=== PATIENT | female | born 1995 | race Caucasian/White ===

== ENCOUNTER 2017-05-19 20:29 | Emergency (ER) | payer OTHER ==
[~2017-05-19] VITALS: Ht 160 cm; Wt 54.4 kg
--- OUTSIDE RECORDS SUMMARY | 2017-05-19 20:36 | XMS REPORT ---
Author Author Carlos Alberto Strickland Organization [employer] Address [address] [place] [address] Care Team Providers Care Systems Librarian Name Role Phone Carlos Alberto Strickland Unavailable PROBLEMS Type Condition ICD9-CM Code [id number] Code Onset Dates Condition Status SNOMED Code Problem Other rosacea L71.8 Active 798043704 Problem Non morbid obesity due to excess calories E66.09 Active 014890701 Problem BMI 30.0-30.9,adult Z68.30 Active 450650472 ALLERGIES Unknown Allergies SOCIAL HISTORY No smoking Hx information available PLAN OF CARE VITAL SIGNS MEDICATIONS Medication Instructions Dosage Frequency Start Date End Date Duration Status Sprintec 28 0.25-35 MG-MCG Orally Once a day 1 tablet 24h 90 days Active RESULTS No Results PROCEDURES No Known procedures IMMUNIZATIONS No Known Immunizations
--- OUTSIDE RECORDS SUMMARY | 2017-05-19 20:36 | XMS REPORT ---
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
--- OUTSIDE RECORDS SUMMARY | 2017-05-19 20:36 | XMS REPORT ---
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 Unknown Non Drug Allergy Jul, Unknown SOCIAL HISTORY No smoking Hx information available PLAN OF CARE Activity Details Pending Test Urinalysis, Complete Pending Test *CBC With Platelet and Differential Pending Test *Comprehensive Metabolic Panel (CMP) Pending Test eGFR Pending Test *Lipid Panel Pending Test Non-HDL Cholesterol Pending Test *TSH Pending Test *LAUREN Screen prn,Reason: VITAL SIGNS Temperature 98.3 degrees Fahrenheit 2016-08-20 Height 64.25 in 2016-08-20 Weight 178.4 lbs 2016-08-20 Oximetry 99% on room air % 2016-08-20 BMI 30.38 kg/m2 2016-08-20 Blood pressure systolic 110 mm Hg 2016-08-20 Blood pressure diastolic 76 mm Hg 2016-08-20 MEDICATIONS Medication Instructions Dosage Frequency Start Date End Date Duration Status Sprintec 28 0.25-35 MG-MCG Orally Once a day 1 tablet 24h 90 days Active Maxalt 10 mg Orally Once a day 1 tablet as needed one time 24h Dec, May, 15 days Active Fioricet 50-300-40 MG Orally every 4 hrs 1 capsule as needed 4h Dec, May, 15 days Active Excedrin Migraine 250-250-65 MG Orally every 6 hrs 2 tablets as needed 6h Active Doxycycline Hyclate 100 MG Orally every 12 hrs 1 capsule 12h Jul, 10 days Active Metrogel 1 % Externally Once a day 1 application to affected area 24h Jul, 10 days Active Probiotic - as directed Active Multi For Her - as directed Active RESULTS No Results PROCEDURES Procedure Date Ordered Related Diagnosis Body Site VENIPUNCT, ROUTINE* August 20, 2016 COMPLETE CBC W/AUTO DIFF WBC August 20, 2016 Preventive Care Est Pt. Age 18-39 August 20, 2016 LIPID PANEL August 20, 2016 COMPREHEN METABOLIC PANEL August 20, 2016 ANTINUCLEAR ANTIBODIES August 20, 2016 ASSAY THYROID STIM HORMONE August 20, 2016 IMMUNIZATIONS No Known Immunizations
--- OUTSIDE RECORDS SUMMARY | 2017-05-19 20:36 | XMS REPORT ---
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
--- OUTSIDE RECORDS SUMMARY | 2017-05-19 20:36 | XMS REPORT ---
Author Author Carlos Alberto Strickland Organization [employer] Address [address] [place] [address] Care Team Providers Care Logistics Research Engineer Name Role Phone Carlos Alberto Strickland Unavailable PROBLEMS Type Condition ICD9-CM Code [id number] Code Onset Dates Condition Status SNOMED Code Problem Other rosacea L71.8 Active 245699694 Problem Non morbid obesity due to excess calories E66.09 Active 274374060 Problem BMI 30.0-30.9,adult Z68.30 Active 525822717 ALLERGIES Unknown Allergies SOCIAL HISTORY No smoking Hx information available PLAN OF CARE VITAL SIGNS MEDICATIONS Medication Instructions Dosage Frequency Start Date End Date Duration Status Sprintec 28 0.25-35 MG-MCG Orally Once a day 1 tablet 24h 90 days Active RESULTS No Results PROCEDURES No Known procedures IMMUNIZATIONS No Known Immunizations
--- OUTSIDE RECORDS SUMMARY | 2017-05-19 20:36 | XMS REPORT ---
Author Author Carlos Alberto Strickland Organization [employer] Address [address] [place] [address] Care Team Providers Care Sheet Manufacturing Supervisor Name Role Phone Carlos Alberto Strickland Unavailable PROBLEMS Type Condition ICD9-CM Code [id number] Code Onset Dates Condition Status SNOMED Code Problem Other rosacea L71.8 Active 166883991 Problem Non morbid obesity due to excess calories E66.09 Active 533657704 Problem BMI 30.0-30.9,adult Z68.30 Active 362285257 ALLERGIES Substance Reaction Event Type Date Status N.K.D.A. Unknown Non Drug Allergy Nov, Unknown SOCIAL HISTORY Qualifiers Date Never Smoker Unknown PLAN OF CARE Activity Details Follow Up 1 Year Reason:null Pending Test Urinalysis, Complete Pending Test Test, Urine Pending Test Genital Culture, Routine [facility] Pending Test *PAP (LBP) w/ Reflex High Risk HPV if results VITAL SIGNS Temperature 97.2 degrees Fahrenheit 2016-12-27 Height 64.25 in 2016-12-27 Weight 175.0 lbs 2016-12-27 Oximetry 96%ra % 2016-12-27 BMI 29.80 kg/m2 2016-12-27 Blood pressure systolic 110 mm Hg 2016-12-27 Blood pressure diastolic 74 mm Hg 2016-12-27 MEDICATIONS Medication Instructions Dosage Frequency Start Date End Date Duration Status Doxycycline Hyclate 100 MG Orally Once a day 1 capsule 24h Nov, 30 days Active Sprintec 28 0.25-35 MG-MCG Orally Once a day 1 tablet 24h 90 days Active Multi For Her - as directed Active Excedrin Migraine 250-250-65 MG Orally every 6 hrs 2 tablets as needed 6h Active Metrogel 1 % Externally Once a day 1 application to affected area 24h Jul, 10 days Active Probiotic - as directed Active RESULTS No Results PROCEDURES Procedure Date Ordered Related Diagnosis Body Site URINALYSIS December 27, 2016 URINE TEST December 27, 2016 Preventive Care Est Pt. Age 18-39 December 27, 2016 CULTURE, BACTERIA, OTHER than urine December 27, 2016 IMMUNIZATIONS No Known Immunizations
--- NOTE | 2017-05-19 20:52 | ED Cough/URI ---
General Chief Complaint: Cough/Cold/Flu Symptoms Stated Complaint: COUGH;CHILLS Nursing Triage Note: Pt c/o chills, body aches, sore throat, nasal congestion, productive cough, and bilateral flank pain x 3 days. Source: patient Exam Limitations: no limitations History of Present Illness Time seen by provider: 20:51 Initial Comments To ER with today being the third day of symptoms. These include sore throat, nonproductive cough, shortness of breath, chills. Timing/Duration: just prior to arrival Severity/Quality: dry cough Associated Symptoms: cough, fever/chills, shortness of breath Allergies and Home Medications Allergies Coded Allergies: No Known Drug Allergies (Unverified , 05/19/17) Constitutional: see HPI EENTM: see HPI Respiratory: no symptoms reported Cardiovascular: no symptoms reported Genitourinary: no symptoms reported Musculoskeletal: no symptoms reported Skin: no symptoms reported Psychiatric/Neurological: No Symptoms Reported Past Vyzeaat-Fyxjiq-Dzpanz Hx Patient Social History Alcohol Use: Denies Use Recreational Drug Use: No Smoking Status: Never a Smoker 2nd Hand Smoke Exposure: No Recent Foreign Travel: No Contact w/Someone Who Travel: No Recent Infectious Disease Expo: No Recent Hopitalizations: No Physical Abuse: No Sexual Abuse: No Mistreated: No Fear: No Immunizations Up To Date Tetanus Booster (TDap): Unknown Seasonal Allergies Seasonal Allergies: No Surgeries History of Surgeries: No Respiratory History of Respiratory Disorde: No Cardiovascular History of Cardiac Disorders: No Neurological History of Neurological Disord: No Genitourinary History of Genitourinary Disor: No Gastrointestinal History of Gastrointestinal Di: No Musculoskeletal History of Musculoskeletal Dis: No Endocrine History of Endocrine Disorders: No HEENT History of HEENT Disorders: No Cancer History of Cancer: No Psychosocial History of Psychiatric Problem: No Suicide Risk Score: 1 Integumentary History of Skin or Integumenta: No Blood Transfusions History of Blood Disorders: No Adverse Reaction to a Blood Tr: No Physical Exam Vital Signs Vital Sign - Last 12Hours 05/19/17 20:35 Temp 98.1 Pulse 123 Resp 18 B/P (MAP) 138/98 (111) Pulse Ox 100 O2 Delivery Room Air Capillary Refill : Less Than 3 Seconds General Appearance: WD/WN, no apparent distress Eyes: Bilateral Eye Normal Inspection, Bilateral Eye PERRL, Bilateral Eye EOMI HEENT: PERRL/EOMI, normal ENT inspection, TMs normal Neck: non-tender, full range of motion Respiratory: normal breath sounds, no respiratory distress, no accessory muscle use Cardiovascular: tachycardia (she is afebrile at 98-99 but fairly tachycardic at about 130) Gastrointestinal: normal bowel sounds, non tender, soft Neurologic/Psychiatric: alert, normal mood/affect, oriented x 3 Skin: normal color, warm/dry Progress/Results/Core Measures Suspected Sepsis Recent Fever Within 48 Hours: Yes Infection Criteria Present: None New/Unexplained Altered Menta: No Sepsis Screen: No Definite Risk Sepsis Diagnosis: SIRS Temperature:98.1 Pulse: 123 Respiratory Rate: 18 Blood Pressure 138 /98 Mean: 111 Results/Orders Micro Results Microbiology 05/19/17 Influenza Types A,B Antigen (RANDAL) - Final, Complete My Orders Orders - PHILLIP MISHRA APRN Influenza A And B Antigens (05/19/17 20:33) Cbc With Automated Diff (05/19/17 20:49) Comprehensive Metabolic Panel (05/19/17 20:49) Hcg,Qualitative Serum (05/19/17 20:49) Saline Lock/Iv-Start (05/19/17 20:49) Chest Pa/Lat (2 View) (05/19/17 20:49) Ns Iv 1000 Ml (Sodium Chloride 0.9%) (05/19/17 21:00) Vital Signs/I&O Vital Sign - Last 12Hours 05/19/17 20:35 Temp 98.1 Pulse 123 Resp 18 B/P (MAP) 138/98 (111) Pulse Ox 100 O2 Delivery Room Air Capillary Refill : Less Than 3 Seconds Blood Pressure Mean: 111 Departure Impression Impression: Primary Impression: Influenza A Disposition: 01 HOME, SELF-CARE Condition: Stable Departure-Patient Inst. Decision time for Depature: 21:06 Referrals: [facility] (PCP) Primary Care Physician Patient Instructions: Flu, Adult (DC) Add. Discharge Instructions: 1. Tylenol and Motrin for fevers and chills which will persist for the next few days 2. Bnir-rwl-rncqpsh cough and cold remedies such as DayQuil and NyQuil are fine. All discharge instructions reviewed with patient and/or family. Voiced understanding. PHILLIP MISHRA APRN May 19, 2017 20:52
[2017-05-19] MEDS ORDERED: NS IV 1000 ML 1,000 ML IV SCH (21:00)
[2017-05-19 21:10] LABS: BASOPHILS % (AUTO) 0 % (0-10); EOSINOPHILS % (AUTO) 0 % (0-10); LYMPHOCYTES # (AUTO) 1.4 X 10^3 (1.0-4.0); LYMPHOCYTES % (AUTO) 27 % (12-44); MEAN CORPUSCULAR HEMOGLOBIN 28 PG (25-34); MEAN CORPUSCULAR HGB CONC 35 G/DL (32-36); MEAN CORPUSCULAR VOLUME 81 FL (80-99); MEAN PLATELET VOLUME 10.1 FL (7.4-10.4); MONOCYTES # (AUTO) 0.8 X 10^3 (0.0-1.0); MONOCYTES % (AUTO) 16 % (0-12); NEUTROPHILS % (AUTO) 56 % (42-75); PLATELET COUNT 282 10^3/uL (130-400); RED BLOOD COUNT 5.48 10^6/uL (4.35-5.85); RED CELL DISTRIBUTION WIDTH 12.6 % (10.0-14.5); WHITE BLOOD COUNT 5.3 10^3/uL (4.3-11.0)
--- NOTE | 2017-05-19 21:21 | Diagnostic Imaging Report ---
INDICATION: Chills, body pain, sore throat, congestion with cough FINDINGS: There is some borderline prominence of the perihilar airways, bronchitis or reactive airway disease could not be excluded. No aleena pneumonia, however. No effusion or pneumothorax. IMPRESSION: No focal infiltrate, failure, effusion or pneumothorax. Mild prominence of the perihilar interstitial markings. Dictated by: Dictated on workstation # [id number]
[2017-05-19 21:52] LABS: ALANINE AMINOTRANSFERASE 27 U/L (0-55); ALBUMIN 4.3 GM/DL (3.2-4.5); ANION GAP 11 MMOL/L (5-14); ASPARTATE AMINO TRANSFERASE 32 U/L (5-34); BILIRUBIN,TOTAL 0.3 MG/DL (0.1-1.0); BLOOD UREA NITROGEN 7 MG/DL (7-18); BUN/CREATININE RATIO 8; CALCIUM 9.3 MG/DL (8.5-10.1); CARBON DIOXIDE 21 MMOL/L (21-32); CHLORIDE 104 MMOL/L (98-107); CREATININE SERUM 0.92 MG/DL (0.60-1.30); GFR ESTIMATED > 60; GLUCOSE 129 MG/DL (70-105); POTASSIUM 3.5 MMOL/L (3.6-5.0); SODIUM 136 MMOL/L (135-145); TOTAL PROTEIN 8.1 GM/DL (6.4-8.2)
[2017-05-19 21:56] VITALS: BP 128/66
== END 2017-05-19 21:54 | disposition home or self-care (01) ==
LOC: ER 20:32
DX: J11.1 Influenza due to unidentified influenza virus with other respiratory manifestations (principal)
CPT/HCPCS: 36415; 71020; 80053; 84703; 85025; 87804; 99282